=== PATIENT | female | born 1955 | race Caucasian/White ===

== ENCOUNTER 2016-08-06 12:25 | Emergency (ER) | payer MEDICAID ==
[~2016-08-06] VITALS: Ht 167.6 cm; Wt 93.0 kg
[2016-08-06] MEDS ORDERED: MORPHINE SULFATE 4 MG/ML, 1ML IVPush PRN (13:00)
[2016-08-06] MEDS ORDERED: SODIUM CHLORIDE 0.9% 1,000ML IVBOLUS ONE (13:00)
[2016-08-06] MEDS ORDERED: SODIUM CHLORIDE FLUSH 10ML SYR IVF ONE (13:00)
[2016-08-06] MEDS ORDERED: ONDANSETRON 2MG/ML, 2ML IVPush ONE (13:00)
[2016-08-06] MEDS ORDERED: ONDANSETRON 2MG/ML, 2ML ONE (13:15)
[2016-08-06] MEDS ORDERED: MORPHINE SULFATE 4 MG/ML, 1ML ONE (13:15)
[2016-08-06 13:24] LABS: ASPARTATE AMINO TRANSFERASE 35 U/L (15-37); BLOOD UREA NITROGEN 13 mg/dL (7-18)
[2016-08-06] MEDS ORDERED: OMNIPAQUE 350 MG/ML, 100ML BOTTLE ONE (14:56)
[2016-08-06 15:25] VITALS: BP 114/81
== END 2016-08-06 15:34 | disposition home or self-care (01) ==
LOC: ED 14:20
DX: K80.20 Calculus of gallbladder without cholecystitis without obstruction (principal); E78.5 Hyperlipidemia, unspecified
CPT/HCPCS: 36415; 71010; 71275; 76700; 80053; 83690; 85025; 93005; 96361; 96374; 96375; 99285; J2405; J7030; Q9967

== ENCOUNTER 2016-10-23 15:21 | Emergency (ER) | payer MEDICAID ==
[~2016-10-23] VITALS: Ht 167.6 cm; Wt 90.6 kg
[2016-10-23] MEDS ORDERED: KETOROLAC 30 MG/1 ML IM ONE (16:00)
[2016-10-23 16:45] VITALS: BP 146/74
[2016-10-23] MEDS ORDERED: OXYcodone/APAP 5/325MG TABLET PO ONE (17:00)
== END 2016-10-23 16:54 | disposition home or self-care (01) ==
LOC: ED 16:24
DX: M51.36 Other intervertebral disc degeneration, lumbar region (principal)
CPT/HCPCS: 72110; 99284

== ENCOUNTER 2018-06-13 14:10 | Emergency (ER) | payer MEDICAID ==
[~2018-06-13] VITALS: Ht 167.6 cm; Wt 73.7 kg
[2018-06-13 14:30] LABS: BASOPHILS # (AUTO) 0.02 x10^3/uL (0-0.1); BASOPHILS % (AUTO) 0 % (0-1); EOSINOPHILS # (AUTO) 0.03 x10^3/uL (0-0.4); EOSINOPHILS % (AUTO) 0 % (1-7); LYMPHOCYTES # (AUTO) 1.33 x10^3/uL (1-3.4); LYMPHOCYTES % (AUTO) 17 % (22-44); MD NO; MEAN CORPUSCULAR HEMOGLOBIN 32.8 pg (27.0-34.8); MEAN CORPUSCULAR HGB CONC 34.2 g/dL (32.4-35.8); MEAN PLATELET VOLUME 8.6 fL (7.4-10.4); MONOCYTES # (AUTO) 0.51 x10^3/uL (0.2-0.8); MONOCYTES % (AUTO) 7 % (2-9); NEUTROPHILS # (AUTO) 5.97 x10^3/uL (1.8-6.8); NEUTROPHILS % (AUTO) 76 % (42-75); PLATELET COUNT 263 x10^3/uL (130-400); RED CELL DISTRIBUTION WIDTH 14.1 % (9.6-15.2)
[2018-06-13 14:41] LABS: ANION GAP 5 mmol/L (5-15); CALCIUM 9.8 mg/dL (8.5-10.1); CHLORIDE 109 mmol/L (98-107); CREATININE 0.81 mg/dL (0.55-1.02)
--- NOTE | 2018-06-13 16:08 | NUR ---
TASK RN: Patient given discharge instructions and they have confirmed that they understand the instructions. Patient ambulatory with steady gait. Pt left with discharge paperwork, prescription, and all personal belongings.
[2018-06-13 16:09] VITALS: BP 130/85
== END 2018-06-13 16:11 | disposition home or self-care (01) ==
LOC: ED 15:10
DX: R05 Cough (principal); F17.200 Nicotine dependence, unspecified, uncomplicated
CPT/HCPCS: 36415; 71045; 80048; 82040; 85025; 93005; 99284

== ENCOUNTER 2019-06-20 14:07 | Emergency (ER) | payer MEDICAID ==
[~2019-06-20] VITALS: Ht 167.6 cm; Wt 76.2 kg
--- NOTE | 2019-06-20 14:42 | NUR ---
PT AMBULATED TO ROOM PER PEDIS. 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 PT HAS A LOW GRADE TEMP OF 99.1 AND PATIENT HAS BEEN TAKING TYLENOL AND IBUPROFEN. PT PLACED ON MONITOR, WARM BLANKET GIVEN. PT HAS CALL LIGHT IN HAND. PT READY TO SEE THE DOCTOR.
--- NOTE | 2019-06-20 15:37 | NUR ---
BREAK RN: PA AT BEDSIDE. BLANKET PROVIDED TO PT PER REQUEST.
--- NOTE | 2019-06-20 15:56 | NUR ---
PATIENT RESTING IN ROOM. TYLENOL TAKEN FROM OWN SUPPLY, OK'D PER MD. PT RESTING IN BED. WILL CONTINUE TO MONITOR.
--- NOTE | 2019-06-20 16:04 | NUR ---
XRAY AT BEDSIDE. PT TEMP UP TO 101.1. PT HAS ALREADY TAKEN TYLENOL. BLANKETS REMOVED AND WASH CLOTH'S PLACED IN CORE AREAS TO COOL DOWN. WILL CONTINUE TO MONITOR. MD INFORMED OF PATIENT CONDITION.
[2019-06-20 16:15] LABS: MEAN CORPUSCULAR HEMOGLOBIN 32.2 pg (27.0-34.8); MEAN CORPUSCULAR HGB CONC 34.1 g/dL (32.4-35.8); MEAN CORPUSCULAR VOLUME 94.6 fL (80-100); MEAN PLATELET VOLUME 8.1 fL (7.4-10.4); PLATELET COUNT 227 x10^3/uL (130-400); RED BLOOD COUNT 5.04 x10^6/uL (3.82-5.3); RED CELL DISTRIBUTION WIDTH 13.9 % (9.6-15.2)
[2019-06-20] MEDS ORDERED: ACETAMINOPHEN 500 MG TABLET ONE (16:17)
--- NOTE | 2019-06-20 16:19 | NUR ---
TASK RN: PT MEDICATED PER EMAR.
[2019-06-20 16:22] LABS: MD YES
[2019-06-20 16:27] LABS: ALBUMIN 3.2 g/dL (3.4-5.0); ANION GAP 5 mmol/L (5-15); CHLORIDE 105 mmol/L (98-107); CREATININE 0.68 mg/dL (0.55-1.02)
[2019-06-20] MEDS ORDERED: ACETAMINOPHEN 500 MG TABLET PO ONE (16:30)
[2019-06-20 16:31] LABS: TROPONIN I < 0.015 ng/mL (0.000-0.045)
[2019-06-20 18:24] LABS: EOS#(MANUAL) 0.07 x10^3/uL (0.0-0.4); EOS% (MANUAL) 1 % (1-7); LYMPH#(MANUAL) 2.21 x10^3/uL (1-3.4); LYMPHS% (MANUAL) 32 % (22-44); MONOS#(MANUAL) 0.48 x10^3/uL (0.3-2.7); MONOS% (MANUAL) 7 % (2-9); REACTIVE LYMPHS # (MANUAL) 0.41 x10^3/uL (0-0); REACTIVE LYMPHS % (MANUAL) 6 % (0-0); SEG#(MANUAL) 3.73 x10^3/uL (1.8-6.8); SEGS% (MANUAL) 54 % (42-75)
[2019-06-20 18:25] LABS: <PLATELET ESTIMATE> ADEQUATE; <RBC MORPHOLOGY> NORMAL
[2019-06-20 18:26] LABS: <PLT MORPHOLOGY> NORMAL PLT MORPH
[2019-06-20 19:10] VITALS: BP 104/68
--- NOTE | 2019-06-20 19:11 | NUR ---
DISCHARGE INSTRUCTIONS GIVEN TO PATIENT. PT VERBALIZES UNDERSTANDING OF ALL INSTRUCTIONS, FOLLOW UP, TIME OFF WORK AND COVID RESULTS. PT AMBULATES OUT OF ED PER PEDIS WITH STRONG STEADY GAIT.
== END 2019-06-20 19:12 | disposition home or self-care (01) ==
LOC: ED 15:31
DX: J02.8 Acute pharyngitis due to other specified organisms (principal); Z20.828 Contact with and (suspected) exposure to other viral communicable diseases; B97.89 Other viral agents as the cause of diseases classified elsewhere; R06.00 Dyspnea, unspecified; E78.5 Hyperlipidemia, unspecified
CPT/HCPCS: 36415; 71045; 80048; 82040; 83605; 83880; 84145; 84484; 85025; 87040; 99285; U0001

== ENCOUNTER 2020-05-10 18:03 | Emergency (ER) | payer MEDICAID ==
[~2020-05-10] VITALS: Ht 167.6 cm; Wt 82.1 kg
[~2020-05-10 18:03] MED LIST: OMNIPAQUE 350 MG/ML, 100ML BOTTLE ONE
--- NOTE | 2020-05-10 18:25 | NUR ---
MEDICAL STUDENT BEDSIDE
--- NOTE | 2020-05-10 18:42 | NUR ---
PT EXPERIENCING MIDLINE ANTERIOR NECK PAIN WITH A CHOKING SITUATION THAT STARTED AT 1000 TODAY. PAIN 08/31. PT STATES SHE ONLY HAD HOT TEA PRIOR, NO EATING. PT HAS NEVER HAD PAIN LIKE THIS BEFORE. PT DENIES SOB, N/V, OR CP. PT HAS "LIGHT" PAIN WHEN SWALLOWING.
[2020-05-10] MEDS ORDERED: SODIUM CHLORIDE FLUSH 10ML SYR IVF ONE (19:00)
[2020-05-10] MEDS ORDERED: MAALOX/HYOSCYAMINE/LIDOCAINE 45 ML BTL PO ONE (19:00)
[2020-05-10] MEDS ORDERED: MAALOX/HYOSCYAMINE/LIDOCAINE 45 ML BTL ONE (19:04)
[2020-05-10 19:24] LABS: BASOPHILS % (AUTO) 1 % (0-1); EOSINOPHILS % (AUTO) 1 % (1-7); LYMPHOCYTES % (AUTO) 27 % (22-44); MEAN CORPUSCULAR HEMOGLOBIN 33.9 pg (27.0-34.8); MEAN CORPUSCULAR HGB CONC 34.7 g/dL (32.4-35.8); MEAN PLATELET VOLUME 7.9 fL (7.4-10.4); MONOCYTES % (AUTO) 13 % (2-9); NEUTROPHILS % (AUTO) 59 % (42-75); PLATELET COUNT 243 x10^3/uL (130-400); RED BLOOD COUNT 4.22 x10^6/uL (3.82-5.3); RED CELL DISTRIBUTION WIDTH 14.2 % (9.6-15.2)
[2020-05-10 19:25] LABS: MD NO
[2020-05-10 19:37] LABS: ALANINE AMINOTRANSFERASE 34 U/L (12-78); ALBUMIN 3.7 g/dL (3.4-5.0); ANION GAP 7 mmol/L (5-15); CALCIUM 8.9 mg/dL (8.5-10.1); CHLORIDE 108 mmol/L (98-107); CREATININE 0.62 mg/dL (0.55-1.02); T4 (THYROXINE) 7.4 mcg/dL (4.8-13.9)
[2020-05-10 19:47] LABS: ALKALINE PHOSPHATASE 59 U/L (45-117); BILIRUBIN,TOTAL 0.4 mg/dL (0.2-1.0); TOTAL PROTEIN 7.2 g/dL (6.4-8.2); TROPONIN I < 0.015 ng/mL (0.000-0.045)
[2020-05-10 21:37] VITALS: BP 142/78
== END 2020-05-10 21:39 | disposition home or self-care (01) ==
LOC: ED 19:37
DX: R07.0 Pain in throat (principal); M54.2 Cervicalgia; K11.1 Hypertrophy of salivary gland; E78.5 Hyperlipidemia, unspecified; M19.90 Unspecified osteoarthritis, unspecified site
CPT/HCPCS: 36415; 70491; 80053; 84436; 84443; 84484; 85025; 93005; 99285; Q9967